=== PATIENT | female | born 1930 | race Caucasian/White ===

== ENCOUNTER → 2016-10-17 | Outpatient (CLI) | payer MEDICARE ==
[~2016-10-17] MED LIST: ADVAIR 250-501 EAC1 INH; ALENDRONATE SOD35 MG PO; AMLODIPINE BESY10 MG PO; ASPIRIN81 MG PO; BISOPROLOL FUMA10 MG PO; CALCIUM + D 6001 TA1 PO; CALCIUM 500 +1 EAC5 PO; CALCIUM PO; CALCIUM1 TAB.CHEW PO; HYDROCODON-ACE1 EAC7 PO; IPRATR-ALBUTEROL3 ML INH; LISINOPRIL-HCTZ1 T18 PO; LOW DOSE ASPIRI81 M1 PO; MELOXICAM15 MG PO; MOBIC PO; NEURONTIN100 MG PO; NORVASC10 MG PO; PAIN RELIEF325 MG PO; PREDNISONE PO; PROTONIX PO; SERTRALINE HCL100 M1 PO; TAMOXIFEN CITRA20 MG PO; VITAMIN D1000 UNI1 PO; VITAMIN D1000 UNIT PO; ZEBETA10 MG PO; ZOLOFT100 MG PO
--- NOTE | ~2016-10-17 | CR63 ---
[facility] A Service of [facility] RADIOLOGY TEXT RESULTS PATIENT: DAVION CABELLO [facility] : [facility] UNIT #: [id number] AGE: [address]: Jamal Luke MD SEX: F ORDER DR: [id number] [facility] [address] [place], [place] [address] [id number] O MR#: [id number] #: [id number] NAME: DAVION CABELLO. : 1930 SEX: F STUDY DATE/TIME: 10/17/2016 14:34 UNIT: [facility] ROOM: STUDY DESCRIPTION: CR Chest 2 View Attending Physician: Jamal Luke M.D. Ordering Physician: Jamal Luke M.D. Primary Care Physician: Savannah Funk M.D. MEDICAL IMAGING REPORT This report is preliminary unless electronic signature is present EXAM Chest PA and lateral, date of examination is 10/17/2016 COMPARISON 03/23/2016 HISTORY Breast cancer, shortness of breath for 1 week. FINDINGS PA and lateral views of the chest are obtained. The heart size is at the upper limits of normal, vascular pattern is normal. There is a small nodule peripherally in the right lung that is unchanged from the studies of February. No acute infiltrates are identified. CONCLUSION Right-sided pulmonary nodule, stable. No active process identified in the chest. Dictated by... Aden Cervantes M.D. THIS IS AN ELECTRONICALLY VERIFIED REPORT Aden Cervantes M.D. at 10/19/2016 3:10 PM MASTER/juan TD: 10/17/2016 20:48 JOB #: [id number] MEDICAL IMAGING REPORT Page 1 of 1 COPY
--- NOTE | ~2016-10-17 | CT2 ---
[facility] A Service of [facility] RADIOLOGY TEXT RESULTS PATIENT: DAVION CABELLO LOCATION: [facility] : 34 UNIT #: [id number] AGE: [address]: Jamal Luke MD SEX: F ORDER DR: [id number] [facility] [address] [place], [place] [address] [id number] O MR#: [id number] #: [id number] NAME: DAVION CABELLO : 1930 SEX: F STUDY DATE/TIME: 10/17/2016 16:31 UNIT: [facility] ROOM: STUDY DESCRIPTION: CT Abd and Pelv W Cont Attending Physician: Jamal Luke M.D. Ordering Physician: Jamal Luke M.D. Primary Care Physician: Savannah Funk M.D. MEDICAL IMAGING REPORT This report is preliminary unless electronic signature is present EXAM CT of the abdomen and pelvis with contrast INDICATIONS 85-year-old female with history of breast cancer. Observation for metastatic disease. COMPARISON 09/21/[address] exam was performed with one or more of the following radiation dose reduction techniques: automatic exposure control, adjustment of mA and/or kV according to patient size, and iterative reconstruction. FINDINGS Emphysematous change involving the lung bases. The liver is unremarkable. Cholecystectomy. The spleen is unremarkable. Stable renal cysts. Stable right adrenal adenoma. The pancreas is unremarkable. There is no ascites or evidence of lymphadenopathy. Pelvis: Postop changes of the colon. No free fluid. No evidence of pelvic mass or lymphadenopathy. The bone windows demonstrate degenerative changes and scoliosis. IMPRESSION No evidence for metastatic disease. Dictated by... Lai Hackett M.D. THIS IS AN ELECTRONICALLY VERIFIED REPORT Lai Hackett M.D. at 10/19/2016 11:31 AM [facility] A Service of [facility] RADIOLOGY TEXT RESULTS PATIENT: DAVION CABELLO LOCATION: [facility] : 32 UNIT #: [id number] AGE: [address]: Jamal Luke MD SEX: F ORDER DR: JUAN C/marisa TD: 10/18/2016 15:39 JOB #: [id number] MEDICAL IMAGING REPORT Page 1 of 1 COPY
[2016-10-17 15:05] LABS: POC - CREATININE 1.02 mg/dL (0.44-1.03)
== END | disposition home or self-care (01) ==
LOC: CCAT 14:04
PROVIDERS: Internal Medicine Medical Oncology
DX: C50.919 Malignant neoplasm of unspecified site of unspecified female breast (principal); N28.1 Cyst of kidney, acquired; R91.1 Solitary pulmonary nodule
CPT/HCPCS: 71020; 74177; 82565; Q9967